=== PATIENT | female | born 1995 | race American Indian/Alaskan Native ===

== ENCOUNTER 2017-02-06 00:08 | Emergency (ER) | payer SELFPAY ==
[2017-02-06 02:50] VITALS: BP 124/90
[2017-02-06] MEDS ORDERED: TORADOL IM ONE (03:40)
--- NOTE | 2017-02-06 03:45 | Emergency Department Report ---
- General Chief Complaint: Upper Respiratory Infection Stated Complaint: SINUS INFECTION Time Seen by Provider: 02/06/17 03:25 Source: patient Mode of arrival: Ambulatory Limitations: No Limitations - History of Present Illness Initial Comments: This is a 21-year-old female nontoxic, well nourished in appearance, no acute signs of distress presents to the ED complaining of congestion, rhinorrhea, cough, headache, and frontal sinus pain 4 days. Patient describes headache as a diffuse with aching level of 4 out of 10. Patient denies thunderclap headache. Denies stiff neck. Denies head trauma. Denies worse headache. Patient stated her friend was diagnosed with upper resp infection and sinusitis and is being treated with Augmentin. She denies any chest pain, shortness of breath, fever, chills, nausea, vomiting, earache, numbness or tingling. Patient denies any allergies. Denies PMH. MD Complaint: fever, cough, sore throat, rhinorrhea, nasal congestion, sinus pain -: Gradual, days(s) (4) Severity: mild Severity scale (0 -10): 4 Quality: aching Consistency: constant Improves With: nothing Worsens With: nothing Context: sick contacts Associated Symptoms: denies other symptoms, fever (subjective), headache, rhinorrhea, nasal congestion, sore throat, cough. denies: chills, myalgias, diaphoresis, stiff neck, chest pain, shortness of breath, abdominal pain, nausea , vomiting, diarrhea, dysuria, rash, confusion, right sweats, weight loss, epistaxis, hoarseness, ear pain Treatments Prior to Arrival: none - Related Data Previous Rx's Medication Instructions Recorded Last Taken Type Amoxicillin/K Clav Tab [Augmentin 1 tab PO Q12HR #20 tab 02/06/17 Unknown Rx 875 mg] Nystas/Diphen/Xyl Visc/Mylanta 30 ml PO DAILY PRN 10 Days 02/06/17 Unknown Rx [Magic Mouthwash] ED Review of Systems ROS: Stated complaint: SINUS INFECTION Other details as noted in HPI Constitutional: fever. denies: chills Eyes: denies: eye pain, eye discharge, vision change ENT: throat pain. denies: ear pain Respiratory: cough. denies: shortness of breath, wheezing Cardiovascular: denies: chest pain, palpitations Endocrine: no symptoms reported Gastrointestinal: denies: abdominal pain, nausea, diarrhea Genitourinary: denies: urgency, dysuria, discharge Musculoskeletal: denies: back pain, joint swelling, arthralgia Skin: denies: rash, lesions Neurological: denies: headache, weakness, paresthesias Psychiatric: denies: anxiety, depression Hematological/Lymphatic: denies: easy bleeding, easy bruising ED Past Medical Hx - Past Medical History Previous Medical History?: No - Surgical History Past Surgical History?: No - Social History Smoking Status: Never Smoker - Medications Home Medications: Home Medications Medication Instructions Recorded Confirmed Last Taken Type Amoxicillin/K Clav Tab [Augmentin 1 tab PO Q12HR #20 tab 02/06/17 Unknown Rx 875 mg] Nystas/Diphen/Xyl Visc/Mylanta 30 ml PO DAILY PRN 10 Days 02/06/17 Unknown Rx [Magic Mouthwash] ED Physical Exam - General Limitations: No Limitations General appearance: alert, in no apparent distress - Head Head exam: Present: atraumatic, normocephalic - Eye Eye exam: Present: normal appearance, PERRL, EOMI. Absent: scleral icterus, conjunctival injection, nystagmus, periorbital swelling, periorbital tenderness Pupils: Present: normal accommodation - ENT ENT exam: Present: mucous membranes moist, TM's normal bilaterally, normal external ear exam - Expanded ENT Exam Expanded Ear exam: Present: normal external inspection Mouth exam: Present: normal external inspection, tongue normal. Absent: drooling, trismus, muffled voice, tongue elevation, laceration Teeth exam: Present: normal inspection Throat exam: Positive: tonsillar erythema. Negative: tonsillomegaly, tonsillar exudate, R peritonsillar mass, L peritonsillar mass - Neck Neck exam: Present: normal inspection, full ROM. Absent: tenderness, meningismus, lymphadenopathy, thyromegaly - Respiratory Respiratory exam: Present: normal lung sounds bilaterally. Absent: respiratory distress, wheezes, rales, rhonchi, stridor, chest wall tenderness, accessory muscle use, decreased breath sounds, prolonged expiratory - Cardiovascular Cardiovascular Exam: Present: regular rate, normal rhythm, normal heart sounds. Absent: bradycardia, tachycardia, irregular rhythm, systolic murmur, diastolic murmur, rubs, gallop - GI/Abdominal GI/Abdominal exam: Present: soft, normal bowel sounds. Absent: distended, tenderness, guarding, rebound, rigid, diminished bowel sounds - Rectal Rectal exam: Present: deferred - Extremities Exam Extremities exam: Present: normal inspection, full ROM, normal capillary refill. Absent: tenderness, pedal edema, joint swelling, calf tenderness - Back Exam Back exam: Present: normal inspection, full ROM. Absent: tenderness, CVA tenderness (R), CVA tenderness (L), muscle spasm, paraspinal tenderness, vertebral tenderness, rash noted - Neurological Exam Neurological exam: Present: alert, oriented X3, CN II-XII intact, normal gait, reflexes normal - Psychiatric Psychiatric exam: Present: normal affect, normal mood - Skin Skin exam: Present: warm, dry, intact, normal color. Absent: rash - Other Other exam information: Frontal sinus tenderness upon palpation. ED Course Vital Signs 02/06/17 02:47 Temperature 98.4 F Pulse Rate 85 Respiratory 18 Rate Blood Pressure 124/90 O2 Sat by Pulse 100 Oximetry - Reevaluation(s) Reevaluation #1: 02/06/17 03:45 Patient speaking in full sentences but no signs of distress. Critical care attestation.: If time is entered above; I have spent that time in minutes in the direct care of this critically ill patient, excluding procedure time. ED Disposition Clinical Impression: URI (upper respiratory infection) Qualifiers: URI type: unspecified URI Qualified Code(s): J06.9 - Acute upper respiratory infection, unspecified Sinusitis Qualifiers: Sinusitis location: frontal Chronicity: acute Recurrence: non-recurrent Qualified Code(s): J01.10 - Acute frontal sinusitis, unspecified Disposition: DC-01 TO HOME OR SELFCARE Is pt being admited?: No Does the pt Need Aspirin: No Condition: Stable Instructions: Upper Respiratory Infection (ED), Sinusitis (ED), Amoxicillin/ Clavulanate Potassium (By mouth) Additional Instructions: Follow-up with a primary care doctor in 3-5 days or if symptoms worsen and continue return to emergency room as soon as possible possible. Prescriptions: Amoxicillin/K Clav Tab [Augmentin 875 mg] 1 tab PO Q12HR #20 tab Nystas/Diphen/Xyl Visc/Mylanta [Magic Mouthwash] 30 ml PO DAILY PRN 10 Days PRN Reason: Sore Throat Referrals: PRIMARY CARE, [Primary Care Provider] - 3-5 Days RANDEE MONZON MD [Staff Physician] - 3-5 Days [facility] [Outside] - 3-5 Days [facility] [Outside] - 3-5 Days Forms: Work/School Release Form(ED)
== END 2017-02-06 04:51 | disposition home or self-care (01) ==
LOC: ED 00:08
DX: J06.9 Acute upper respiratory infection, unspecified (principal); J01.10 Acute frontal sinusitis, unspecified
CPT/HCPCS: 96372; 99282; J1885

== ENCOUNTER 2019-04-25 19:25 | Emergency (ER) | payer BC ==
[2019-04-25 20:57] VITALS: BP 133/68
--- NOTE | 2019-04-25 20:59 | Event Note ---
ED Screening Note Date of service: 04/25/19 Time: 20:54 ED Screening Note: This is a 24 y.o. F. that presents to the ER with left sided chest pain and SOB x 3 days. States yesterday started having a fever, sore throat, and cough. Took nyquil once. This initial assessment/diagnostic orders/clinical plan/treatment(s) is/are subject to change based on patients health status, clinical progression and re- assessment by fellow clinical providers in the ED. Further treatment and workup at subsequent clinical providers discretion. Patient/guardian urged not to elope from the ED as their condition may be serious if not clinically assessed and managed. Initial orders include:
--- NOTE | 2019-04-25 23:54 | Emergency Department Report ---
Chief Complaint: Chest Pain Stated Complaint: CHEST DISCOMFORT Time Seen by Provider: 04/25/19 20:54 - HPI History of Present Illness: 24-year-old -[place] female presents to the emergency room complaining of cough, chest pain on the left side shortness of breath sore throat weakness denies any fever. Patient denies any nausea vomiting no diarrhea. Patient denies any fever. Patient reports she took one dose of NyQuil. Patient has no past medical history currently takes no medications on a daily basis and has no known drug allergies. - Exam Vital Signs: Vital Signs 04/25/19 04/25/19 20:01 20:56 Temperature 98.6 F Pulse Rate 88 Respiratory 12 Rate Blood Pressure 133/68 O2 Sat by Pulse 100 Oximetry Physical Exam: Gen: alert oriented NAD Cardic: regular rate and rhythm no murmurs appreciated Resp: Clear to auscultation bilateral no wheezing no rales or rhonchi. Abdomen: Soft nontender nondistended normal bowel sounds. MSE screening note: Focused history and physical exam performed. Due to findings the following was ordered: 24-year-old -[place] female presents to the emergency room complaining of cough, chest pain on the left side shortness of breath sore throat weakness denies any fever. Patient denies any nausea vomiting no diarrhea. Patient denies any fever. Patient reports she took one dose of NyQuil. Patient has no past medical history currently takes no medications on a daily basis and has no known drug allergies. To be discharged home with instructions to take [id number] cough medication ibuprofen or Tylenol for pain management. Increase her fluid intake advance her diet as tolerated. Patient is not a candidate for Tamiflu as she's been having these symptoms since Sunday. She can follow up with her primary care provider for symptoms persist or gets worse. ED Disposition for MSE Disposition: - TO HOME OR SELFCARE Is pt being admited?: No Does the pt Need Aspirin: No Condition: Stable Instructions: Viral Syndrome (ED) Additional Instructions: You have a viral syndrome which does not require antibiotics. You need to treat your symptoms you can take [id number] Robitussin ibuprofen or Tylenol. Follow up with her primary care provider if his symptoms persist or gets worse Referrals: ELISHA LEMON MD [Primary Care Provider] - 3-5 Days Your,Primary Care Provider [Other] - 3-5 Days
== END 2019-04-26 00:48 | disposition home or self-care (01) ==
LOC: ED 19:25
DX: R05 Cough (principal); R07.89 Other chest pain; R06.02 Shortness of breath
CPT/HCPCS: 99282